=== PATIENT | female | born 1995 ===

== ENCOUNTER 2017-08-24 15:08 | Emergency (ER) | payer MEDICAID ==
[2017-08-24 15:19] VITALS: BP 102/51
--- NOTE | 2017-08-24 15:50 | RAD ---
INDICATION: Left wrist injury. TECHNIQUE: 3 views of the left wrist were obtained. FINDINGS: There is focal prominent soft tissue swelling dorsal to the carpal bones. No fracture is seen. Joint spaces appear maintained. IMPRESSION: PROMINENT SOFT TISSUE SWELLING, NO FRACTURE IS SEEN. IF THE PATIENT'S SYMPTOMS PERSIST RECOMMEND FOLLOW-UP IMAGING.
--- NOTE | 2017-08-24 16:15 | UC ---
Upper Extremity HPI - HPI Summary HPI Summary: Patient is a 22-year-old female presenting to the with chief complaint of left wrist swelling after a fall yesterday. She states she fell on an outstretched arm and injured the distal portion of her forearm. She endorses pain to the dorsum of the wrist with a pocket of fluid which is compressible. She denies any fevers, sweats, chills. She states she had cellulitis in the wrist in March which has since healed with antibiotics. There is no erythema or warmth to the area. - History of Current Complaint Chief Complaint: UCUpperExtremity Stated Complaint: WRIST INJURY Time Seen by Provider: 08/24/17 15:26 Hx Obtained From: Patient ?: No Onset/Duration: Sudden Onset Severity Initially: Mild Severity Currently: Mild Pain Intensity: 6 Pain Scale Used: 0-10 Numeric Location Of Pain: Is Discrete @ - dorsum of the L hand Aggravating Factor(s): Lifting, Flexion, Extension, Internal/External Rotation Alleviating Factor(s): Compression, Elevation, Ice Associated Signs And Symptoms: Positive: Swelling Related History: Dominant Hand Right - Risk Factors Non-Orthopedic Risk Factor: Negative DVT Risk Factors: Negative Septic Arthritis Risk Factor: Negative Compartment Syndrome Risk Factors: Pain - Allergies/Home Medications Allergies/Adverse Reactions: Allergies Allergy/AdvReac Type Severity Reaction Status Date / Time No Known Allergies Allergy Verified 08/24/17 15:19 Home Medications: Home Medications Acetaminophen [Tylenol] 650 mg PO Q4HR PRN 08/24/17 [History Confirmed 08/24/17] Aspirin 650 mg PO Q4H PRN 08/24/17 [History Confirmed 08/24/17] Sertraline* [Zoloft*] 50 mg PO DAILY 08/24/17 [History Confirmed 08/24/17] busPIRone TAB* [Buspar TAB*] 10 mg PO TID 08/24/17 [History Confirmed 08/24/17] diPHENhydraMINE PO* [Benadryl PO 25 MG TAB*] 25 mg PO Q4H PRN 08/24/17 [History Confirmed 08/24/17] traZODone TAB* [Desyrel TAB*] 50 mg PO BEDTIME 08/24/17 [History Confirmed 08/24] PMH/Surg Hx/FS Hx/Imm Hx Previously Healthy: Yes - Surgical History Surgical History: None - Family History Known Family History: Positive: Unknown - Social History Occupation: Unemployed, Student Lives: With Family Alcohol Use: None Substance Use Type: None Smoking Status (MU): Never Smoked Tobacco Review of Systems Constitutional: Negative Skin: Negative Respiratory: Negative Cardiovascular: Negative Motor: Decreased ROM - d/t pain Neurovascular: Negative Musculoskeletal: Arthralgia Neurological: Negative Is Patient Immunocompromised?: No All Other Systems Reviewed And Are Negative: Yes Physical Exam Triage Information Reviewed: Yes Appearance: Well-Appearing, No Pain Distress, Well-Nourished Vital Signs: Initial Vital Signs Temp 97.3 F 08/24/17 15:14 Pulse 71 08/24/17 15:14 Resp 18 08/24/17 15:14 BP 102/51 08/24/17 15:14 Pulse Ox 100 08/24/17 15:14 Vital Signs Reviewed: Yes Eye Exam: Normal Eyes: Positive: Conjunctiva Clear Neck exam: Normal Neck: Positive: Supple, No Lymphadenopathy Respiratory Exam: Normal Respiratory: Positive: Chest non-tender, Lungs clear Cardiovascular: Positive: RRR, No Murmur Neurological Exam: Normal Neurological: Positive: Alert Psychological: Positive: Normal Response To Family Skin Exam: Normal Skin: Positive: Other - swelling Upper Extremity Course/Dx - Course Course Of Treatment: Denies erythema or warmth. Small pocket of fluid to the dorsum of the wrist. X-ray obtained which shows: IMPRESSION: PROMINENT SOFT TISSUE SWELLING, NO FRACTURE IS SEEN. IF THE PATIENT'S. SYMPTOMS PERSIST RECOMMEND FOLLOW-UP IMAGING. Patient is given a cock-up splint and encouraged ibuprofen and ice. She will follow-up with Dr. Alexis if symptoms persist. - Differential Dx/Diagnosis Differential Diagnosis/HQI/PQRI: Fracture (Open), Fracture (Closed), Hematoma, Strain, Sprain Provider Diagnoses: Hand Effusion Discharge - Sign-Out/Discharge Documenting (check all that apply): Discharge/Admit/Transfer - Discharge Plan Condition: Stable Disposition: HOME Referrals: Marvin Alexis MD [Medical Doctor] - No Primary Care Phys,NOPCP [Primary Care Provider] - Additional Instructions: Keep the wrist splint applied for comfort Follow up with orthopedics - Billing Disposition and Condition Condition: STABLE Disposition: HOME Images Hands: 1 - swelling
== END 2017-08-24 16:10 | disposition home or self-care (01) ==
LOC: UCEAST 15:08
DX: M25.442 Effusion, left hand (principal)
CPT/HCPCS: 99212; G0463